=== PATIENT | male | born 1970 | race Caucasian/White ===

== ENCOUNTER 2017-06-28 20:18 | Emergency (ER) | payer SELFPAY ==
[2017-06-28] MEDS ORDERED: HYDROmorphone 2 mg/mL 1mL Vial IVP STA (21:00)
[2017-06-28] MEDS ORDERED: HYDROmorphone 2 mg/mL 1mL Vial ONE (21:08)
[2017-06-28] MEDS ORDERED: Hydrocodone/APAP 10 mg/325 mg Tab PO STA (21:09)
[2017-06-28 21:47] LABS: % BASOPHILS 0.5 % (0.0-2.0); % EOSINOPHILS 0.6 % (0.0-5.0); % LYMPHOCYTES 8.1 % (20.0-50.0); % MONOCYTES 5.5 % (2.0-10.0); % NEUTROPHILS 85.3 % (40.0-80.0); BASOPHILE ABSOLUTE 0.1 Th/cumm (0-0.2); EOSINOPHILE ABSOLUTE 0.1 Th/cmm (0.1-0.4); HEMATOCRIT 42.9 % (41.0-60); HEMOGLOBIN 14.7 gm/dL (12-16); LYMPHOCYTE ABSOLUTE 0.9 Th/cmm (1.5-3.0); MEAN CELL VOLUME 90.3 fl (80-99); MEAN CORPUSCULAR HEMOGLOBIN 30.9 pg (26.0-30.0); MEAN CORPUSCULAR HGB CONC 34.2 pg (28.0-36.0); MEAN PLATELET VOLUME 8.4 fl; MONOCYTE ABSOLUTE 0.6 Th/cmm (0.3-1.0); NEUTROPHILE ABSOLUTE 9.6 Th/cmm (1.8-8.0); PLATELET COUNT 272 Th/cmm (150-400); RED BLOOD COUNT 4.75 Mil/cmm (4.30-5.70); RED CELL DISTRIBUTION WIDTH 12.1 % (11.5-20.0); WHITE BLOOD COUNT 11.3 Th/cmm (4.8-10.8)
[2017-06-28] MEDS ORDERED: Piperacillin Sodium/Tazobact 3.375 gm Vial IV ONE (21:55)
[2017-06-28 22:08] LABS: ALB/GLOB RATIO 0.6 (1.0-1.8); ALBUMIN 2.7 gm/dL (4.2-5.5); ALKALINE PHOSPHATASE 101 U/L (34-104); BILIRUBIN,TOTAL 0.5 mg/dL (0.3-1.0); BUN - UREA NITROGEN 11 mg/dL (7-25); CALCIUM SERUM 8.4 mg/dL (8.6-10.3); CHLORIDE 104 mEq/L (98-107); CREATININE - SERUM 0.7 mg/dL (0.7-1.3); GFR AFRICAN-AMERICAN > 60.0 ml/min (>90); GFR NON AFRICAN-AMERICAN > 60.0 ml/min; GLUCOSE 120 mg/dL (70-105); SGOT 67 U/L (13-39); SGPT/ALT 47 U/L (7-52); SODIUM SERUM 133 mEq/L (136-145); TOTAL PROTEIN,SERUM 7.4 gm/dL (6.0-8.3)
[2017-06-28 23:15] LABS: URINE MICROSCOPIC INDICATED? YES; URINE SOURCE MIDSTREAM
[2017-06-28 23:18] LABS: URINE BILIRUBIN NEGATIVE (NEGATIVE); URINE BLOOD NEGATIVE (NEGATIVE); URINE GLUCOSE (UA) NEGATIVE (NEGATIVE); URINE KETONE TRACE mg/dL (NEGATIVE); URINE LEUKOCYTE ESTERASE NEGATIVE (NEGATIVE); URINE NITRATE NEGATIVE (NEGATIVE); URINE PROTEIN 100 mg/dL (NEGATIVE); URINE UROBILINOGEN 0.2 E.U./dL (0.2 - 1.0)
[2017-06-28 23:43] LABS: URINE CLARITY CLEAR (CLEAR); URINE COLOR DARK YELLOW
[2017-06-28 23:44] LABS: URINE BACTERIA FEW /hpf (NONE SEEN); URINE EPITHELIAL CELLS RARE /lpf (FEW); URINE RBC NONE SEEN /hpf (0-5); URINE WBC 0-2 /hpf (0-5)
--- NOTE | 2017-06-29 08:10 | Diagnostic Imaging Report ---
Portable chest x-ray History: Pain Allowing for portable technique the heart size is normal. No focal pulmonary parenchymal processes. No hilar or mediastinal abnormalities. Impression: No acute abnormalities.
--- NOTE | 2017-06-29 08:11 | Diagnostic Imaging Report ---
Right RIBS (4 views) HISTORY: Pain No acute bony abnormalities. No fractures. No acute pulmonary parenchymal or pleural abnormalities. IMPRESSION: No acute abnormalities
--- NOTE | 2017-08-05 19:31 | ER Physician Documentation ---
DATE OF SERVICE: 06/28/2017 HISTORY OF PRESENT ILLNESS: A 47-year-old male patient, 1970 is the birthdate, body surface area 1.77 square meters, BMI is 27.2. I do not have any record except for triage nurse's notes and whatever I will see I will let you know. The patient was not seen here within the last 48 hours, [facility] nurse brought the patient, patient was awake and alert x 4, accompanied by family. Primary language was Bengali. The patient brought in by ambulance from home due to back pain started yesterday, got worse today. No fall or trauma. The patient traveled outside the country, no. Not went to any other countries. Temporal artery scan was done. Temperature was found to be 101.9. Pain was sharp in the hip. High risk for sepsis. Height was 1.63 meters. Please note that all this was taken from the nurse's triage notes as I cannot remember and to the best of my memory I will be putting this down. Suspected new infection on this patient. This patient was seen by some primary care doctor or just picked up by the paramedics. The patient had a COPD. History of pneumonia, TB, or flu vaccination, etc. were none. The patient is bed #6 and I was notified according to the nurse, so I might have seen the patient, but not dictated, so I am going to dictate to the best of my memory. The patient was seen at 2024, that means 6:25 p.m., and it is very possible that this patient was given to the shift superintendent eileen or woman you know, whoever is, I do not think we have female ER physician. So 6:25, the triage nurse brought this and admitted and kept somewhere and probably it was for the shift superintendent. I cannot remember seeing this patient. The patient had a lab workup done at that time showed 11.3, hematocrit was 42.9, platelet count 272,000, neutrophils 85.3 suggesting a shift to the left. Sodium 133, potassium 5, chloride 104, CO2 23, BUN 11, creatinine 0.7, ___ 15.7. So I saw the patient and I gave you the lab results and I gave some patient's care. Medications were given to the patient. I gave lots of orders for this patient. The patient had EKG, chest x-ray, blood cultures, CBC, CMP, lactic acid, magnesium, urinalysis, etc. was done. Dilaudid was given to the patient, hydromorphone 2 mg was given to the patient, and the patient had some vomiting. The patient was given some vancomycin, piperacillin, because the patient was septic, and after that I believe the patient was admitted to the hospital. The patient might have got nausea and vomiting as a result of Dilaudid, I am not sure, but the patient had a severe pain. Now, I remember this lady who had severe pain and she was given 2 mg Dilaudid because of severe, severe pain, and she was feeling it was more than 10/10 pain. The patient was given Zofran at that time, which is not documented. I had given Zofran IV, it is not documented in the chart, couple of times that was given and is not documented, FYI, I remember that for sure. The patient was kept over there. The patient was septic and then the patient was admitted in the emergency. From there, the patient was admitted into the hospital. The patient is a 47-year-old. The patient that I was discussing was an older lady and here this is a man and I discussed the patient according to the nurse with the patient accompanied by daughter and ___ was removed and the patient lumbosacral sprain and the patient went home. All belongings were sent according to one of the nurse. It is very unfortunate that the nurse does not write her name, his name, or any even regular registry nurse who comes for 1 day or months together, they do not write the name despite telling them to write their names, they do not write their names you know, like they write our name, doctor so and so saw the patient, the nurses should write their names also. This is my request that from future, better start now better late then never. Now the lady that I was describing was an old lady and this person is a young male, so there is a conflict going. I have no idea what this patient was admitted. The patient I was describing was a woman, this is a man, and the patient went home according to this, the lady that I know was admitted by some other doctors. That is all I can remember. A 12-point review of systems was pain and vomiting, cough, sepsis, shift to the left, piperacillin and vancomycin was given, and the patient was admitted, but according to the nurse, the patient was sent home. What is happening I am not sure. JOB# [id number]
== END 2017-06-28 22:15 | disposition home or self-care (01) ==
LOC: ER 20:18
DX: A41.9 Sepsis, unspecified organism (principal); R11.2 Nausea with vomiting, unspecified; R05 Cough; J44.9 Chronic obstructive pulmonary disease, unspecified
CPT/HCPCS: 99285; 96365; 96375; 93005; 71045; 71101; 36415; 85025; 81001; 83735; 80053; J2543; 86141-TC; J1170